=== PATIENT | female | born 1965 | race Caucasian/White ===

== ENCOUNTER 2021-10-26 08:58 | Inpatient (IN) | payer OTHER ==
[2021-10-28 17:16] VITALS: BMI 34.3
[2021-11-02] MEDS ORDERED: BUPIVACAINE LIPOSOME/PF (EXPAREL) 266 MG/20 ML VIAL ONE (07:27)
[2021-11-02] MEDS ORDERED: BUPIVACAINE HCL 100 ML ONE (07:27)
[2021-11-02] MEDS ORDERED: CEFAZOLIN 2 GM in DEXTROSE 5%-WATER - 100 ML IVPB ONE (08:08)
[2021-11-02] MEDS ORDERED: ceFAZolin SODIUM 1 GM VIAL IVPB ONE (08:34)
[2021-11-02] MEDS ORDERED: METHYLERGONOVINE MALEATE 0.2 MG/1 ML AMP IM PRN (10:49)
[2021-11-02] MEDS ORDERED: IBUPROFEN 800 MG/8 ML IJ IVPB PRN (10:49)
[2021-11-02] MEDS ORDERED: ACETAMINOPHEN 325 MG TABLET (FP) PO PRN (10:49)
[2021-11-02] MEDS ORDERED: ONDANSETRON 4 MG/2 ML VIAL IVPUSH PRN (11:01)
[2021-11-02] MEDS ORDERED: ACETAMINOPHEN 1000 MG/100 ML BAG IVPB ONE (11:02)
[2021-11-02] MEDS ORDERED: ACETAMINOPHEN INJECTION 100 ML IVPB ONE (11:46)
[2021-11-02] MEDS ORDERED: PROMETHAZINE HCL 25 MG/1 ML VIAL ONE (12:00)
[2021-11-02] MEDS ORDERED: PROMETHAZINE HCL 25 MG/1 ML VIAL IVPUSH PRN (12:15)
[2021-11-02] MEDS: DEXTROSE 5%-LACTATED RINGERS 1,000 ML IV SCH (14:59)
[2021-11-02] MEDS: SIMETHICONE 80 MG TAB.CHEW (FP) PO PRN (17:42)
[2021-11-02] MEDS: CEFAZOLIN SODIUM 2 GM in DEXTROSE 5%-WATER 100 ML IVPB SCH (17:42)
[2021-11-02] MEDS ORDERED: oxyCODONE HCL 5 MG TABLET PO PRN (22:49)
[2021-11-02] MEDS: IBUPROFEN 600 MG TABLET (FP) PO PRN (22:50)
[2021-11-03] MEDS: CEFAZOLIN SODIUM 2 GM in DEXTROSE 5%-WATER 100 ML IVPB SCH (02:51)
[2021-11-03] MEDS: SIMETHICONE 80 MG TAB.CHEW (FP) PO PRN ×4 (02:56→21:11)
[2021-11-03] MEDS: oxyCODONE HCL 5 MG TABLET PO PRN ×2 (02:56→14:42)
[2021-11-03] MEDS: IBUPROFEN 600 MG TABLET (FP) PO PRN ×3 (08:42→21:11)
[2021-11-03 09:15] LABS: HEMOGLOBIN 7.7 GM/dL (10.7-15.3); MCH 28.6 pg (25.7-33.7); MCHC 33.3 g/dl (32.0-36.0); MEAN CELL VOLUME 85.8 fl (80-96); MEAN PLT VOLUME 7.9 fl (7.5-11.1); PLATELET COUNT 321 10^3/uL (134-434); RBC 2.68 M/mm3 (3.60-5.2); RDW 15.3 % (11.6-15.6); WHITE BLOOD COUNT 11.9 K/mm3 (4.0-10.0)
[2021-11-03] MEDS ORDERED: BISACODYL 10 MG SUPP.RECT RC PRN (10:49)
[2021-11-03] MEDS ORDERED: SENNOSIDES/DOCUSATE COMBO (SENNA PLUS) TABLET (UD) PO PRN (10:49)
[2021-11-03] MEDS: FERROUS SO4 325 MG TABLET (FP) PO SCH ×2 (11:28→21:11)
[2021-11-03] MEDS: amLODIPine BESYLATE 5 MG TABLET (FP) PO SCH (11:28)
[2021-11-04] MEDS: LACTATED RINGERS SOLUTION 1,000 ML IV SCH ×2 (00:11→00:17)
[2021-11-04] MEDS: SIMETHICONE 80 MG TAB.CHEW (FP) PO PRN ×3 (00:15→11:48)
[2021-11-04] MEDS: IBUPROFEN 600 MG TABLET (FP) PO PRN ×3 (00:15→11:48)
[2021-11-04] MEDS: DEXTROSE 5%-LACTATED RINGERS 1,000 ML IV SCH (00:17)
[2021-11-04] MEDS: oxyCODONE HCL 5 MG TABLET PO PRN ×2 (08:50→13:54)
[2021-11-04] MEDS: amLODIPine BESYLATE 5 MG TABLET (FP) PO SCH (09:16)
[2021-11-04] MEDS: FERROUS SO4 325 MG TABLET (FP) PO SCH (09:17)
[2021-11-04 10:26] VITALS: BP 114/73; PULSE 91; RESP 18; TEMP 99
[2021-11-04 10:35] LABS: BASO % 0.5 % (0-2.0); EOS % 2.9 % (0-4.5); HEMATOCRIT 21.8 % (32.4-45.2); LYMPH % 23.1 % (8-40); MCH 27.6 pg (25.7-33.7); MCHC 32.1 g/dl (32.0-36.0); MONO % 9.1 % (3.8-10.2); NEUT % 64.4 % (42.8-82.8); PLATELET COUNT 322 10^3/uL (134-434); RBC 2.53 M/mm3 (3.60-5.2); RDW 15.7 % (11.6-15.6); WHITE BLOOD COUNT 12.4 K/mm3 (4.0-10.0)
== END 2021-11-04 14:35 | disposition home or self-care (01) | DRG 743 ==
LOC: J2C 11-02 04:01 → J3W 11-02 14:39
PROVIDERS: ADMIT Obstetrics & Gynecology; ATTEND Obstetrics & Gynecology
PROC: 0UT70ZZ Resection of Bilateral Fallopian Tubes, Open Approach (ICD-10-PCS; 2021-11-02)
PROC: 0UT20ZZ Resection of Bilateral Ovaries, Open Approach (ICD-10-PCS; 2021-11-02)
PROC: 0UT90ZZ Resection of Uterus, Open Approach (ICD-10-PCS; principal; 2021-11-02 08:00)
DX: N85.00 Endometrial hyperplasia, unspecified (principal); D25.9 Leiomyoma of uterus, unspecified; N95.0 Postmenopausal bleeding
CPT/HCPCS: 36415; 81025; 85025; 85027; 88305-TC; 88307-TC; 94010; 94760